=== PATIENT | female | born 1935 | race Asian ===

== ENCOUNTER 2019-09-16 06:20 | Day surgery (SDC) | payer MEDICARE, OTHER ==
[~2019-09-16] VITALS: Ht 157.5 cm; Wt 77.4 kg
[~2019-09-16 06:20] MED LIST: BACL20TA PO; HYDR12.54 PO; LOSA50TA37 PO; METF-911 PO; PANT40TA25 PO; SODIUM CHLORIDE 0.9% 1,000 ML ONE
[2019-09-16] MEDS ORDERED: SODIUM CHLORIDE 0.9% 1,000 ML IV ONE (07:00)
[2019-09-16 07:17] LABS: GLUCOMETER DEV NAME(LOC) SDS.; GLUCOSE,POINT OF CARE 109 MG/DL (70-110)
[2019-09-16] MEDS ORDERED: FentaNYL CITRATE-PF 100 MCG/2 ML VIAL ONE (08:01)
[2019-09-16] MEDS ORDERED: MIDAZOLAM HCL 2 MG/2 ML VIAL ONE (08:01)
[2019-09-16] MEDS ORDERED: MethylPREDNISolone SOD SUCC 125 MG/2 ML VIAL IVP ONE (08:45)
[2019-09-16] MEDS ORDERED: MethylPREDNISolone SOD SUCC 125 MG/2 ML VIAL ONE (09:18)
[2019-09-16] MEDS ORDERED: BENZOCAINE 20% 50 MCG/SPRAY 57 GM ONE (16:32)
[2019-09-16] MEDS ORDERED: LIDOCAINE 2% 30 ML JELLY ONE (16:32)
[2019-09-16] MEDS ORDERED: OXYGEN THERAPY IH SCH (20:00)
== END 2019-09-16 10:40 | disposition home or self-care (01) ==
LOC: SURGERY 06:20
PROVIDERS: ATTEND Internal Medicine Critical Care Medicine
DX: R05 Cough (principal); R91.1 Solitary pulmonary nodule; J43.9 Emphysema, unspecified; J34.89 Other specified disorders of nose and nasal sinuses; J98.8 Other specified respiratory disorders; J38.4 Edema of larynx; B37.0 Candidal stomatitis; I10 Essential (primary) hypertension; E11.9 Type 2 diabetes mellitus without complications; M19.90 Unspecified osteoarthritis, unspecified site; F03.90 Unspecified dementia, unspecified severity, without behavioral disturbance, psychotic disturbance, mood disturbance, and anxiety; Z85.038 Personal history of other malignant neoplasm of large intestine; Z90.49 Acquired absence of other specified parts of digestive tract; Z96.653 Presence of artificial knee joint, bilateral; Z11.59 Encounter for screening for other viral diseases
CPT/HCPCS: 31623; 31624; 71045; 82962; 87015; 87070; 87101; 87205; 87206; 87220; 87635; 88108; 88312; 93005; J2250; J2930; J3010; J7030